=== PATIENT | male | born 1995 | race Native Hawaiian/Other Pacific Islander ===

== ENCOUNTER 2019-02-26 13:10 | Emergency (ER) | payer SELFPAY ==
--- NOTE | 2019-02-26 13:15 | Event Note ---
ED Screening Note Date of service: 02/26/19 Time: 13:12 ED Screening Note: This is a 23 y.o. M. that presents to the ER with chest pain since last week Pain is intermittent, stabbing, and cause chills. No significant medical history. No recent travel. This initial assessment/diagnostic orders/clinical plan/treatment(s) is/are subject to change based on patients health status, clinical progression and re- assessment by fellow clinical providers in the ED. Further treatment and workup at subsequent clinical providers discretion. Patient/guardian urged not to elope from the ED as their condition may be serious if not clinically assessed and managed. Initial orders include: EKG and CXR
[2019-02-26 13:17] VITALS: BP 129/70
--- NOTE | 2019-02-26 13:48 | Emergency Department Report ---
HPI - General Chief Complaint: Chest Pain Time Seen by Provider: 02/26/19 13:12 - HPI HPI: 23 YO MALE COMES TO ER WITH INTERMITTENT CHEST PAIN. "FEELS LIKE MY HEART HAS AIR IN IT." NO SOB. NOT ASSOCIATED WITH FOOD OR MOVEMENT. SEEMS OVERLY CONCERNED PMH NONE PSH NONE RX NONE MOM AND DAD A/W DENIES ETOH/DRUGS/THC/ CIG ED Past Medical Hx - Past Medical History Previous Medical History?: No - Surgical History Past Surgical History?: No - Social History Smoking Status: Never Smoker Substance Use Type: Alcohol - Medications Home Medications: Home Medications Medication Instructions Recorded Confirmed Last Taken Type Ibuprofen [Motrin] 800 mg PO Q8HR PRN #30 tablet 02/26/19 Unknown Rx ED Review of Systems ROS: Stated complaint: CHEST PAIN Other details as noted in HPI Comment: All other systems reviewed and negative Physical Exam - Physical Exam Vital Signs: Vital Signs 02/26/19 02/26/19 13:12 13:17 Temperature 98.5 F 98.5 F Pulse Rate 88 88 Respiratory 18 16 Rate Blood Pressure 129/70 129/70 O2 Sat by Pulse 99 99 Oximetry Physical Exam: 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 LUNGS CTA ABD SNT NO TACHYCARDIA ED Course Vital Signs 02/26/19 02/26/19 13:12 13:17 Temperature 98.5 F 98.5 F Pulse Rate 88 88 Respiratory 18 16 Rate Blood Pressure 129/70 129/70 O2 Sat by Pulse 99 99 Oximetry ED Medical Decision Making - Lab Data Result diagrams: 02/26/19 14:09 02/26/19 14:09 - EKG Data When compared to previous EKG there are: no significant change Interpretation: no acute changes - Radiology Data Radiology results: report reviewed, image reviewed - Medical Decision Making Labs 02/26/19 02/26/19 14:09 14:09 WBC 5.5 RBC 5.09 H Hgb 15.7 H Hct 45.4 MCV 89 MCH 31 MCHC 35 H RDW 13.1 L Plt Count 250 Lymph % (Auto) 35.5 H Alfalfa % (Auto) 5.8 Eos % (Auto) 0.3 Baso % (Auto) 0.3 Lymph # 2.0 Alfalfa # 0.3 Eos # 0.0 Baso # 0.0 Seg Neutrophils % 58.1 Seg Neutrophils # 3.2 Sodium 137 Potassium 3.5 L Chloride 100.4 Carbon Dioxide 24 Anion Gap 16 BUN 10 Creatinine 0.7 L Estimated GFR > 60 BUN/Creatinine Ratio 14 Glucose 118 H Calcium 9.2 Troponin T < 0.010 Vital Signs 02/26/19 02/26/19 13:12 13:17 Temperature 98.5 F 98.5 F Pulse Rate 88 88 Respiratory 18 16 Rate Blood Pressure 129/70 129/70 O2 Sat by Pulse 99 99 Oximetry LABS NOTED K NOTED- REPLACED PO 12 LEAD NORMAL XRAY NORMLA EXAM NORMAL GI COCKTAIL GIVEN- "SOME RELIEF" HERE WITH MOTHER. VS NORMAL. NO FEVER. NO TRAUMA. DC HOME WITH CONSERVATIVE TREATMENT AND PCP FOLLOW UP - Differential Diagnosis RO URTI/ANXIETY Critical care attestation.: If time is entered above; I have spent that time in minutes in the direct care of this critically ill patient, excluding procedure time. ED Disposition Clinical Impression: Chest wall pain, Hypokalemia Disposition: DC-01 TO HOME OR SELFCARE Is pt being admited?: No Does the pt Need Aspirin: No Condition: Stable Instructions: Costochondritis (ED) Additional Instructions: FOLLOW UP WITH PCP REFERRAL BELOW [facility] FOR PAIN Prescriptions: Ibuprofen [Motrin] 800 mg PO Q8HR PRN #30 tablet PRN Reason: Pain, Moderate (4-6) Referrals: TRISTAN MORGAN MD [Staff Physician] - 3-5 Days Time of Disposition: 14:56
--- NOTE | 2019-02-26 13:57 | XRay Report ---
CHEST 1 VIEW INDICATION: Chest Pain. COMPARISON: None FINDINGS: Support devices: None. Heart: Within normal limits. Lungs/Pleura: No acute air space or interstitial disease. Additional findings: None. IMPRESSION: No acute findings. Signer Name: Tha Gutierrez Jr, MD Signed: 02/26/2019 1:53 PM Workstation Name: [id number]
[2019-02-26] MEDS ORDERED: ALUM-MAG HYDROX-SIMETH 200-200-20MG/5ML PO ONE (13:58)
[2019-02-26] MEDS ORDERED: PEPCID PO ONE (13:58)
[2019-02-26] MEDS ORDERED: LIDOCAINE VISCOUS 2% PO ONE (13:58)
[2019-02-26 14:17] LABS: Basophils % (Auto) 0.3 % (0.0-1.8); Eosinophils % (Auto) 0.3 % (0.0-4.3); Hematocrit 45.4 % (35.5-45.6); Hemoglobin 15.7 gm/dl (11.8-15.2); Lymphocytes % (Auto) 35.5 % (13.4-35.0); Mean Corpuscular HGB Conc 35 % (32-34); Mean Corpuscular Volume 89 fl (84-94); Monocytes # (Auto) 0.3 K/mm3 (0.0-0.8); Monocytes % (Auto) 5.8 % (0.0-7.3); Platelet Count 250 K/mm3 (140-440); Red Blood Count 5.09 M/mm3 (3.65-5.03); Red Cell Distribution Width 13.1 % (13.2-15.2)
[2019-02-26 14:36] LABS: BUN/Creatinine Ratio 14; Blood Urea Nitrogen 10 mg/dL (9-20); Calcium 9.2 mg/dL (8.4-10.2); Hemolysis Index 17
[2019-02-26] MEDS ORDERED: K-DUR PO ONE (14:56)
== END 2019-02-26 15:45 | disposition home or self-care (01) ==
LOC: ED 13:10
DX: R07.89 Other chest pain (principal); E87.6 Hypokalemia
CPT/HCPCS: 36415; 71045; 80048; 84484; 85025; 93005; 93010